=== PATIENT | male | born 1975 | race Caucasian/White ===

== ENCOUNTER 2018-06-16 09:30 | Day surgery (SDC) | END 2018-06-16 15:50 | disposition home or self-care (01) ==

== ENCOUNTER 2018-07-10 22:12 | Emergency (ER) | END 2018-07-11 00:34 | disposition home or self-care (01) ==

== ENCOUNTER 2018-08-28 08:55 | Emergency (ER) | END 2018-08-28 10:50 | disposition home or self-care (01) ==

== ENCOUNTER 2018-11-13 21:27 | Emergency (ER) | payer OTHER ==
[~2018-11-13] VITALS: Wt 89.4 kg
[~2018-11-13 21:27] MED LIST: ALBU18HF INHALATION; BECL10.6 IH; BUPR300T4 PO; CETI10CA PO; GABA-526 PO; LISI-471 PO; PRED20TA PO
[2018-11-14] MEDS ORDERED: predniSONE 20 MG TAB PO STA (01:42)
[2018-11-14] MEDS ORDERED: ALBUTEROL 0.083% (NEB) 2.5 MG/3 ML AMP NEB STA (01:42)
[2018-11-14] MEDS ORDERED: IPRATROPIUM (NEB) 0.5 MG/2.5 ML AMP NEB STA (01:42)
[2018-11-14] MEDS ORDERED: PRED20TA PO (02:09)
[2018-11-14] MEDS ORDERED: ALBU18HF INHALATION (02:09)
--- NOTE | 2018-11-14 02:09 | ERD ---
ER Documentation Chief Complaint Chief Complaint bib self, cc: sob, and cough, flu like symptoms HPI 43-year-old male with history of asthma presents presents with wheezing. States that he took his albuterol medication this morning but it did not seem to help. Dates he wants a breathing treatment. Denies chest pain, nausea, vomiting, diarrhea, fevers. History of asthma and hypertension. Denies allergies. ROS All systems reviewed and are negative except as per history of present illness. Medications Home Meds Active Scripts Prednisone* (Prednisone*) 20 Mg Tab, 40 MG PO DAILY for 4 Days, TAB Prov:CAROLINA COLEMAN 11/14/18 Albuterol Sulfate* (Ventolin HFA*) 18 Gm Hfa.aer.ad, 2 PUFF INHALATION Q4H, #1 INHALER Prov:MARILOUOBINNAMARYANNECAROLINA 11/14/18 Beclomethasone Dipropionate (Qvar Redihaler (40 MCG)) 10.6 Gm Hfa.aeroba, 10.6 GM IH BID for asthma for 30 Days, INH 0 Refills Prov:CAROLINA COLEMAN 08/28/18 Cetirizine Hcl* (Zyrtec*) 10 Mg Capsule, 10 MG PO DAILY, #10 TAB.CHEW Prov:NICOLACAROLINA LAZARO S. 07/11/18 Albuterol Sulfate* (Ventolin HFA*) 18 Gm Hfa.aer.ad, 2 PUFF INHALATION Q4H, #1 INHALER Prov:CHRISPRITESHCAROLINA S. 07/11/18 Reported Medications Bupropion Hcl* (Bupropion XL*) 300 Mg Tab.sr.24h, 300 MG PO DAILY, TAB.SA 06/16/18 Gabapentin* (Gabapentin*) 600 Mg Tablet, 600 MG PO TID, #90 TAB 06/16/18 Lisinopril* (Lisinopril*) 20 Mg Tablet, 20 MG PO DAILY, #30 TAB 06/16/18 Allergies Allergies: Coded Allergies: No Known Allergy (Unverified , 06/16/18) PMhx/Soc History of Surgery: Yes (cyst removal in neck) Anesthesia Reaction: No Hx Neurological Disorder: No Hx Respiratory Disorders: Yes (ASTHMA) Hx Cardiac Disorders: Yes (htn) Hx Psychiatric Problems: Yes (anxiety) Hx Miscellaneous Medical Probl: No Hx Alcohol Use: No Hx Substance Use: No Hx Tobacco Use: No Smoking Status: Never smoker FmHx Family History: No diabetes, No coronary disease, No other Physical Exam Vitals Vital Signs Date Temp Pulse Resp B/P (MAP) Pulse Ox O2 O2 Flow FiO2 Time Delivery Rate 11/14/18 98.0 83 19 119/77 98 Room Air 03:26 (91) 11/14/18 82 22 97 21 02:02 11/13/18 99.8 87 19 148/90 100 21:31 (109) Physical Exam Const: No acute distress Head: Atraumatic Eyes: Normal Conjunctiva ENT: Normal External Ears, Nose and Mouth. Neck: Full range of motion. No meningismus. Resp: Clear to auscultation bilaterally Cardio: Wheezing heard in the lung nowak diffusely. No pallor or cyanosis noted. Abd: Soft, non tender, non distended. Normal bowel sounds Skin: No petechiae or rashes Back: No midline or flank tenderness Ext: No cyanosis, or edema Neur: Awake and alert Psych: Normal Mood and Affect Results 24 hrs Current Medications Medications Dose Sig/Silvia Start Time Status Last (Trade) Ordered Route PRN Stop Time Admin Dose Reason Admin Albuterol 7.5 mg ONCE STAT 11/14/18 DC 11/14/18 (Proventil NEB 01:42 02:02 0.083% (Neb)) 11/14/18 01:45 Ipratropium 0.5 mg ONCE STAT 11/14/18 DC 11/14/18 [place] NEB 01:42 02:02 (Atrovent 11/14/18 01:45 0.02% (Neb)) Prednisone 60 mg ONCE STAT 11/14/18 DC 11/14/18 (Prednisone) PO 01:42 01:52 11/14/18 01:45 Procedures/MDM ER Course: Patient given treatment with nebulized albuterol, ipatropium, and steroids. MDM:43-year-old male with history of asthma presents presents with wheezing. States that he took his albuterol medication this morning but it did not seem to help. Dates he wants a breathing treatment. Denies chest pain, nausea, vomiting, diarrhea, fevers. History of asthma and hypertension. Denies allergies. I have low suspicion for status asthmaticus due to patient improvmen t after breathing treatment. I have low suspicion for CHF, pneumonia, aspirated foreign body, pneumothorax, PE, respiratory distress, or other mergent condition based on exam and patient history. In addition, patient does not meet Wells score criteria for D-Dimer. Presentation consistent with asthma exacerbation for which patient was given breathing treatment and steroids in ER. After breathing treatment was finished, patients vitals and exam were WNL and patient stated they felt much better. Patient was discharged with rx for alubuterol and a short course of oral steroids. Patient was also advised that asthma has to be managed on outpatient basis by primary care provider. Patient discharged with strict ER precautions. Patient advised to follow up with PMD. All questions answered at discharge. Departure Diagnosis: Primary Impression: Asthma Asthma severity: unspecified severity Asthma persistence: unspecified Asthma complication type: unspecified Qualified Codes: J45.909 - Unspe cified asthma, uncomplicated Condition: Stable MARILOUCAROLINA MCKAY Nov 14, 2018 02:08
[2018-11-14 03:26] VITALS: BP 119/77; PULSE 83; RESP 19
== END 2018-11-14 03:28 | disposition home or self-care (01) ==
LOC: FTE 21:27
DX: J45.901 Unspecified asthma with (acute) exacerbation (principal); I10 Essential (primary) hypertension
CPT/HCPCS: 94644; J7512; Z7502; Z7610